=== PATIENT | female | born 1940 | race Caucasian/White ===

== ENCOUNTER 2017-04-13 06:15 | Observation (INO) | payer OTHER ==
[2017-04-13] VITALS (20 sets, daily range): BP systolic 116–166; BP diastolic 58–79; PULSE 56–68; RESP 16–20; Ht 162.6 cm; Wt 70.2 kg
[~2017-04-13] VITALS: Ht 162.6 cm; Wt 70.2 kg
[2017-04-13] MEDS ORDERED: THROMBIN 5000 UNIT VIAL ONE (06:53)
[2017-04-13] MEDS ORDERED: LIDOCAINE 2%/EPI (MDV) 20ML INJ ONE (06:53)
[2017-04-13] MEDS ORDERED: BENA10TA48 PO (07:13)
[2017-04-13] MEDS ORDERED: NAPR500T8 PO (07:13)
[2017-04-13] MEDS ORDERED: LORA5SOL74 PO (07:13)
[2017-04-13] MEDS ORDERED: ASPI81TA3 PO (07:13)
[2017-04-13] MEDS ORDERED: CITA10TA84 PO (07:14)
[2017-04-13] MEDS ORDERED: CALC-543 PO (07:15)
[2017-04-13] MEDS ORDERED: ROSU10TA PO (07:15)
[2017-04-13] MEDS ORDERED: LIDOCAINE 2% (SDV) 5 ML INJ ONE (07:20)
[2017-04-13] MEDS ORDERED: PROPOFOL 20 ML ONE (07:20)
[2017-04-13] MEDS ORDERED: ROCURONIUM 50 MG INJ ONE ×2 (07:20→08:51)
[2017-04-13] MEDS ORDERED: FENTAnyl 50 MCG/ML VIAL ONE (07:40)
[2017-04-13] MEDS ORDERED: CEFAZOLIN 1 GM INJ ONE (08:22)
[2017-04-13] MEDS ORDERED: DEXAMETHASONE 4 MG/ML 1 ML INJ ONE (08:23)
[2017-04-13] MEDS ORDERED: ONDANSETRON 4 MG INJ ONE (08:23)
[2017-04-13] MEDS ORDERED: POLYMYXIN/BACITRACIN 1L IRRIG IRR ONE (08:30)
[2017-04-13] MEDS ORDERED: MEPERIDINE 100 MG INJ ONE (08:32)
[2017-04-13] MEDS ORDERED: SUGAMMADEX SODIUM 200 MG/2 ML VIAL IV ONE (09:14)
--- NOTE | 2017-04-13 09:49 | OPR ---
Date/Time of Note Date/Time of Note DATE: 04/13/17 TIME: 09:47 Operative Report Procedure Date: Apr 13, 2017 Preoperative Diagnosis LARGE ENTEROCELE AND RECTOCELE Postoperative Diagnosis SAME Operation Performed ENTEROCELE AND RECTOCELE REPAIR Surgeon: MACY JOHN MD Anesthesia: general Anesthesiologist: GOPI HOBSON Estimated Blood Loss: 0 - 10 ml's Specimens VAGINAL MUCOSA Complications: None Pt Condition Post Procedure: stable Disposition: PACU MACY JOHN MD Apr 13, 2017 09:49
[2017-04-13] MEDS ORDERED: HYDROmorphONE 1 MG/ML SYG IV PRN (10:00)
[2017-04-13] MEDS ORDERED: ZOLPIDEM 5 MG TAB PO PRN (10:00)
[2017-04-13] MEDS ORDERED: HYDROCODONE/APAP (5/325) TAB PO PRN ×2 (10:00)
[2017-04-13] MEDS ORDERED: DIPHENHYDRAMINE 50 MG CAP PO PRN (10:00)
[2017-04-13] MEDS ORDERED: METOCLOPRAMIDE 10 MG TAB PO SCH (12:00)
[2017-04-13] MEDS: KETOROLAC 30 MG INJ IV SCH ×3 (12:18→21:02)
[2017-04-13] MEDS: LACTATED RINGER'S 1,000 ML IV SCH ×2 (12:18→17:27)
--- NOTE | 2017-04-13 13:55 | OPR ---
DATE OF OPERATION: 04/13/2017 PREOPERATIVE DIAGNOSIS: Large enterocele and rectocele. POSTOPERATIVE DIAGNOSIS: Large enterocele and rectocele. PROCEDURE: Enterocele and rectocele repair. SURGEON: Camila Dejesus MD ANESTHESIA: Dr. Pak with general. OPERATION PERFORMED: The patient was given general anesthesia, placed in the lithotomy position. The perineal vaginal area was prepped and draped and a large enterocele and rectocele was observed. A triangular incision was made at the perineum and the portion of the skin was removed. The vaginal area was cut in the midline all the way up to the cul-de-sac. Injection of xylocaine and epinephrine was done all the way up and separation of the rectocele was done and the enterocele was also pushed down. The and dissection was done of the rectocele and the enterocele sac was entered and trimmed and closed with interrupted sutures with 2-0 Vicryl. The rectocele was reduced with interrupted sutures with 0 Vicryl. The trimming of the vaginal mucosa was done and the whole vagina was closed with interrupted sutures with 0 Vicryl. At the perineal area the levator ani were tucked from one side to the other side with a number 0 Vicryl with lifting of the perineum. The perineum was closed with a 2-0 Vicryl as well. The Jordan catheter was placed in the bladder with clear urine, and there was no need for an anterior repair since the bladder appears to be normal, maybe grade 2 cystocele. Xeroform gauze was left in the vagina for pressure. The patient tolerated the procedure well and left the OR awake and stable. Sponge counts and instrument counts were correct. Intravenous antibiotics were given for prophylaxis. Blood loss was minimal. The urine was clear at the end of the procedure. Dictated By: Camila Dejesus MD /ignacio/basil /Document#: [id number]
[2017-04-13] MEDS ORDERED: CEFAZOLIN 1 GM/50 ML (PMX) 50 ML IVPB SCH (14:00)
[2017-04-13] MEDS ORDERED: CITALOPRAM 20 MG TAB PO SCH (21:00)
[2017-04-13] MEDS: CITALOPRAM 20 MG TAB PO SCH (21:02)
[2017-04-14 01:05] VITALS: BP 120/60; RESP 18
[2017-04-14] MEDS: LACTATED RINGER'S 1,000 ML IV SCH (02:14)
[2017-04-14] MEDS: KETOROLAC 30 MG INJ IV SCH ×2 (04:54→10:41)
[2017-04-14 05:40] LABS: HEMOGLOBIN 11.6 g/dl (12.0-16.0); LYMPHOCYTES # 1.7 10^3/ul (0.8-2.9); MEAN CORPUSCULAR HEMOGLOBIN 29.4 pg (29.0-33.0); MEAN CORPUSCULAR HGB CONC 34.1 g/dl (32.0-37.0); MEAN CORPUSCULAR VOLUME 86.3 fl (82.0-101.0); MEAN PLATELET VOLUME 11.1 fl (7.4-10.4); MONOCYTE # 0.9 10^3/ul (0.3-0.9); MONOCYTES % 7.5 % (0.0-11.0); NEUTROPHIL # 8.7 10^3/ul (1.6-7.5); NEUTROPHILS % 77.1 % (39.0-77.0); PLATELET COUNT 187 10^3/UL (140-415); RED BLOOD COUNT 3.94 10^6/ul (4.20-5.40); RED CELL DISTRIBUTION WIDTH 12.8 % (11.5-14.5); WHITE BLOOD COUNT 11.3 10^3/ul (4.8-10.8)
[2017-04-14 06:51] LABS: CREATININE 0.76 mg/dl (0.44-1.00); POTASSIUM 4.6 mmol/L (3.5-5.1)
[2017-04-14 07:00] VITALS: BP 139/73; RESP 20
[2017-04-14] MEDS: CITALOPRAM 20 MG TAB PO SCH (08:35)
[2017-04-14] MEDS ORDERED: ASPIRIN 81 MG TAB PO SCH (09:00)
[2017-04-14] MEDS ORDERED: BENAZEPRIL 10 MG TAB PO SCH ×2 (09:00)
--- NOTE | 2017-04-14 10:13 | PD.PPDC ---
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
--- NOTE | 2017-04-14 10:23 | DS ---
Date/Time of Note Date/Time of Note DATE: 04/14/17 TIME: 10:16 Discharge Summary Admission/Discharge Info Admit Date/Time Apr 13, 2017 at 06:15 Discharge Date/Time 04/14/17 Discharge Diagnosis Enterocele and rectocele repair Patient Condition: Good Procedures Enterocele and Rectocele repair Hx of Present Illness Long history of pelvic pain and pressure with severe constipation and a mass that comes out of vagina Enterocele and rectocele diagnosed Repair offered mild cystocele, asymptomatic no uterine prolapse Hospital Course uneventful recovery post surgery. packing left overnite to control hemostasis patient did very well, and was able to control pain with oral meds, eat and tolerate regular diet. ambulate and have a BM. laboratory testing near normal and afebrile. very happy to go home Home Meds Reported Medications Rosuvastatin Calcium (Rosuvastatin Calcium) 10 Mg Tablet, 10 MG PO DAILY, TAB 04/13/17 Calcium Carb & Cit-Vitamin D3 (Calcium + D3 ER) 1 Each Tablet.er, 1 TAB PO DAILY , TAB 04/13/17 Citalopram Hydrobromide* (Citalopram Hydrobromide*) 10 Mg Tablet, 10 MG PO BID, #30 TAB 04/13/17 Naproxen* (Naproxen EC*) 500 Mg Tablet.dr, 500 MG PO DAILY, TAB 04/13/17 Aspirin (Aspirin) 81 Mg Chew, 81 MG PO DAILY, TAB.CHEW 04/13/17 Benazepril Hcl* (Benazepril Hcl*) 10 Mg Tablet, 10 MG PO DAILY, #30 TAB 04/13/17 Loratadine (Loratadine) 5 Mg/5 Ml Solution, 10 MG PO DAILY, #300 ML 04/13/17 Primary Care Provider Not On Staff Doctor Pending Labs Laboratory Tests Test 04/14/17 04:35 White Blood Count 11.310^3/ul (4.8-10.8) Red Blood Count 3.9410^6/ul (4.20-5.40) Hemoglobin 11.6g/dl (12.0-16.0) Hematocrit 34.0% (37.0-47.0) Mean Corpuscular Volume 86.3fl (82.0-101.0) Mean Corpuscular Hemoglobin 29.4pg (29.0-33.0) Mean Corpuscular Hemoglobin Concent 34.1g/dl (32.0-37.0) Red Cell Distribution Width 12.8% (11.5-14.5) Platelet Count 92284^3/UL (140-415) Mean Platelet Volume 11.1fl (7.4-10.4) Neutrophils % 77.1% (39.0-77.0) Lymphocytes % 15.0% (15.0-51.0) Monocytes % 7.5% (0.0-11.0) Eosinophils % 0.0% (0.0-7.0) Basophils % 0.0% (0.0-2.0) Nucleated Red Blood Cells % 0.0/100WBC (0.0-0.0) Neutrophils # 8.710^3/ul (1.6-7.5) Lymphocytes # 1.710^3/ul (0.8-2.9) Monocytes # 0.910^3/ul (0.3-0.9) Eosinophils # 0.010^3/ul (0.0-0.5) Basophils # 0.010^3/ul (0.0-0.1) Nucleated Red Blood Cells # 0.010^3/ul (0.0-0.0) Sodium Level 140mmol/L (135-144) Potassium Level 4.6mmol/L (3.5-5.1) Chloride Level 104mmol/L (97-110) Carbon Dioxide Level 26mmol/L (21-31) Anion Gap 15 (8-16) Blood Urea Nitrogen 12mg/dl (7-20) Creatinine 0.76mg/dl (0.44-1.00) MACY JOHN MD Apr 14, 2017 10:23
[2017-04-14 14:00] VITALS: BP 106/54; RESP 18
== END 2017-04-14 15:15 | disposition home or self-care (01) ==
LOC: REC 06:15 → INTOOBSV 06:15 → EDSTATUS 07:30 → MS1 10:39
PROVIDERS: ADMIT Obstetrics & Gynecology; ATTEND Obstetrics & Gynecology
DX: N81.5 Vaginal enterocele (principal); N81.6 Rectocele; E78.5 Hyperlipidemia, unspecified; I10 Essential (primary) hypertension; Z86.73 Personal history of transient ischemic attack (TIA), and cerebral infarction without residual deficits; Z88.0 Allergy status to penicillin; Z91.041 Radiographic dye allergy status
CPT/HCPCS: 57250; 57268; 80051; 82565; 84520; 85025; 87086; 88305; J0690; J1100; J1885; J2175; J2405; J3010; J7120; Z7500; Z7512; Z7610; 99217; G0378

== ENCOUNTER 2017-07-04 06:18 | Day surgery (SDC) | payer OTHER ==
--- NOTE | 2017-07-02 16:26 | PREOPHP ---
DATE OF ADMISSION: 07/04/2017 HISTORY OF PRESENT ILLNESS: This is a 77-year-old 5, para 3, abortions 2. Patient with a h istory of constipation and with endometrial hyperplasia and lower abdominal pain with a painful blad nadine. This patient has been diagnosed with a large enterocele and rectocele that was fixed in 7. This patient had an ultrasound that revealed that she had endometrial hyperplasia for which a hy steroscopy D and C is offered at this time. This patient had a history of appendectomy, tonsillecto my, hypertension. ALLERGIES: 1. IODINE 2. PENICILLIN. PAST MEDICAL HISTORY: She has a history of mini stroke in 2012 and rosacea. MEDICATIONS: She is on: 1. Benazepril for hypertension. 2. Naproxen 3. Citalopram. 4. Aspirin. 5. Naproxen for pain. FAMILY HISTORY: Hypertension, heart attacks, diabetes and strokes. This patient was treated for enterocele repair with successful; now after an ultrasound that reveale d endometrial hyperplasia, we are doing a fractional D and C hysteroscopy to rule out endometrial ma lignancy. Past history is otherwise noncontributory. PHYSICAL EXAMINATION: GENERAL APPEARANCE: Good. VITAL SIGNS: Blood pressure 130/70, pulse is 80. She weighs 155, she is 5 feet 4 inches. HEAD AND NECK: Normal. BREASTS: Soft, nontender, no masses. CHEST: Clear. HEART: Normal sinus rhythm. BACK: Normal. ABDOMEN: Soft, nontender, no masses. GENITALIA: With normal external genitalia, no atrophy, absent uterus and no pain, no adnexal mass. Uterus is small and atrophic and nonprolapsed, and both adnexa are negative. DIAGNOSES: Endometrial hyperplasia, fibroid uterus, old fibroid uterus, vaginal atrophy, recent ent erocele and rectocele repair. PLAN: She is undergoing a fractional D and C hysteroscopy to rule out malignancy and to follow on h er care. The patient has been advised of the possible risks and possible complications of the proce dure with her alternatives and options. Written information was provided. She had no more question s and agreed to go ahead with the procedure with full understanding and no more questions. Dictated By: MACY WOODY/MAURILIO Conf#: [id number] [facility]#: [id number]
[~2017-07-04] VITALS: Ht 157.5 cm; Wt 71.6 kg
[2017-07-04] VITALS (12 sets, daily range): BP systolic 139–148; BP diastolic 51–73; PULSE 56–76; RESP 11–24; Ht 157.5 cm; Wt 71.6 kg
[~2017-07-04 06:18] MED LIST: ASPI81TA3 PO; BENA10TA48 PO; CALC-543 PO; CITA10TA84 PO; LORA5SOL74 PO; NAPR500T8 PO; ROSU10TA PO
[2017-07-04] MEDS ORDERED: PROPOFOL 20 ML ONE (07:28)
[2017-07-04] MEDS ORDERED: DEXAMETHASONE 4 MG/ML 1 ML INJ ONE (07:29)
[2017-07-04] MEDS ORDERED: ONDANSETRON 4 MG INJ ONE (07:29)
[2017-07-04] MEDS ORDERED: FENTAnyl 50 MCG/ML VIAL ONE (07:29)
[2017-07-04] MEDS ORDERED: CLINDAMYCIN 900 MG/D5W (PMX) 50 ML IVPB SCH (07:30)
[2017-07-04] MEDS ORDERED: ONDANSETRON 4 MG INJ IV PRN (08:00)
[2017-07-04] MEDS ORDERED: hydrALAzine 20 MG INJ IV PRN (08:00)
[2017-07-04] MEDS ORDERED: LABETALOL HCL 20MG INJ IV PRN (08:00)
[2017-07-04] MEDS ORDERED: FENTAnyl 50 MCG/ML VIAL IV PRN ×2 (08:00)
[2017-07-04] MEDS ORDERED: ACETAMINOPHEN 1000MG/100ML IV 100 ML ONE (08:19)
[2017-07-04] MEDS ORDERED: KETOROLAC 30 MG INJ ONE (08:25)
[2017-07-04] MEDS ORDERED: EPHEDrine SULFATE 50 MG/5 ML SYG ONE (08:26)
--- NOTE | 2017-07-04 08:36 | PD.PPDC ---
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
[2017-07-04] MEDS ORDERED: KETOROLAC 30 MG INJ IV STA (08:39)
--- NOTE | 2017-07-04 08:44 | SIPON ---
Date/Time of Note Date/Time of Note DATE: 07/04/17 TIME: 08:41 Operative Report Preoperative Diagnosis ENDOMETRIAL HYPERPLASIA OLD FIBROID UTERUS VAGINAL ATROPHY Postoperative Diagnosis SAME Operation/Procedure Performed FRACTIONAL; D&C HYSTEROSCOPY Surgeon see signature line assistant drafter NONE Anesthesia: general Estimated blood loss: minimal Transfusion Required none Specimen UTERINE CONTENTS Grafts/Implants none Complications none MACY JOHN MD Jul 04, 2017 08:44
--- NOTE | 2017-07-04 10:46 | OPR ---
DATE OF OPERATION: 07/04/2017 PROCEDURE: Fractional D and C, hysteroscopy. PREOPERATIVE DIAGNOSES: Endometrial hyperplasia, all fibroid uterus, vaginal atrophy. POSTOPERATIVE DIAGNOSES: Endometrial hyperplasia, all fibroid uterus, vaginal atrophy. SURGEON: Dr. Dejesus. ANESTHESIA: Nurse practitioner Lyubov HARVEY. COMPLICATIONS: None. DESCRIPTION OF PROCEDURE: The patient was given general anesthesia, placed in the lithotomy positio n. The perineal and vaginal area were prepped and draped. Complete examination under anesthe faisal revealed that the uterus was retroverted and small. Adnexa were nonpalpable. The vaginal specu lum was applied. The cervix was held. The endocervical curettage was done. The uterus was sounded to a depth of 3 inches and dilated with Hegar dilators. Hysteroscope was placed in and visualizati on of the cavity revealed that there was only free fluid in the cavity. There were no polyps or fib roids. Apparently the left tube ostium looked dilated and the right side was occluded. The procedu re was finished by removing the hysteroscope and scraping the cavity with sharp curet on the posteri or and anterior and fundus and lateral nguyen, very scanty tissue was obtained. The patient tolerate d the procedure well and left the OR awake and stable. Sponge counts and instrument counts were cor rect. Intravenous antibiotics were given for prophylaxis. Blood loss was minimal. Dictated By: MACY WOODY/MAURILIO Conf#: [id number] DID#: [id number]
== END 2017-07-04 10:15 | disposition home or self-care (01) ==
LOC: SDS 06:18
PROVIDERS: ATTEND Obstetrics & Gynecology
DX: N85.00 Endometrial hyperplasia, unspecified (principal); N95.2 Postmenopausal atrophic vaginitis; I10 Essential (primary) hypertension
CPT/HCPCS: 58558; 88305; J0131; J1100; J1885; J2405; J3010; Z7512; Z7610

== ENCOUNTER 2018-08-07 08:52 | Day surgery (SDC) | END 2018-08-07 13:08 | disposition home or self-care (01) ==

== ENCOUNTER 2018-10-02 21:01 | Emergency (ER) | payer OTHER ==
[~2018-10-02] VITALS: Ht 165.1 cm; Wt 72.0 kg
[~2018-10-02 21:01] MED LIST changes: +ACET325T45 PO; +ALPR0.5T6 PO; -ASPI81TA3 PO; +ASPI81TA52 PO; +BENA10TA4 PO; -BENA10TA48 PO; -CALC-543 PO; -CITA10TA84 PO; +CITA20TA11 PO; +DONE5TAB7 PO; +LORA-186 PO; -LORA5SOL74 PO; +MECL-77 PO; -NAPR500T8 PO; -ROSU10TA PO; +ROSU10TA55 PO
[2018-10-02 21:27] VITALS: Ht 165.1 cm; Wt 72.0 kg
[2018-10-02] MEDS ORDERED: SOD CHLORIDE 0.9% 500 ML IV STA (22:28)
[2018-10-02] MEDS ORDERED: NAPR-985 PO (22:56)
[2018-10-02] MEDS ORDERED: GLUC1CAP16 PO (23:02)
[2018-10-02] MEDS ORDERED: IOHEXOL 100 ML ONE (23:03)
[2018-10-02] MEDS ORDERED: SOD CHLORIDE 0.9% 100 ML ONE (23:03)
[2018-10-02] MEDS ORDERED: MAGN400T28 PO (23:03)
[2018-10-03] MEDS ORDERED: KETOROLAC 15 MG INJ IV STA (00:38)
[2018-10-03] MEDS ORDERED: LORAZEPAM 2 MG INJ IV ONE (01:00)
[2018-10-03] MEDS ORDERED: CYCL10TA7 PO (01:32)
[2018-10-03] MEDS ORDERED: TRAM50TA2 PO (01:32)
--- NOTE | 2018-10-03 01:45 | ERD ---
ER Documentation Chief Complaint Chief Complaint STEVENSON WITH BILAT NECK PAIN & HX OF CVA 2013, MILD "WOBBLINESS WHEN AMBULATING" HPI This is a very pleasant 78-year-old female comes with a headache that started with bilateral neck pain. She said it started with muscle stiffness yesterday and got progressively worse and then it progressed to the top of her head. It is reproducible to touch and worse when she moves her head left and right. Denies focal neurologic complaints. Denies visual acuity changes. Denies ataxia. Denies balance issues. Denies any other current complaints. Pain mild to moderate intensity with no exacerbating or alleviating factors. ROS All systems reviewed and are negative except as per history of present illness. Medications Home Meds Active Scripts Tramadol HCl (Tramadol HCl) 50 Mg Tablet, 25 MG PO Q4 PRN for PAIN, #20 TAB Prov:MODESTA SANDHU 10/03/18 Cyclobenzaprine Hcl* (Cyclobenzaprine Hcl*) 10 Mg Tablet, 10 MG PO TID, #15 TAB Prov:MODESTA SANDHU. 10/03/18 Reported Medications Magnesium Oxide* (Magnesium Oxide*) 400 Mg Tablet, 400 MG PO DAILY, TAB 10/02/18 Gluc HCl/Csa/Raymond Hy/Hyalur AC (Glucosamine Chondroitin Cap) 1 Each Capsule, 1 EACH PO DAILY, CAP 10/02/18 Naproxen* (Naprosyn*) 500 Mg Tablet, 500 MG PO BID, TAB 10/02/18 Donepezil* (Donepezil*) 5 Mg Tablet, 5 MG PO QHS, #30 TAB 08/07/18 Aspirin (Low Dose Aspirin) 81 Mg Tablet.dr, 81 MG PO DAILY, #30 TAB 08/07/18 Rosuvastatin Calcium* (Crestor*) 10 Mg Tablet, 10 MG PO QHS, #30 TAB 08/07/18 Benazepril Hcl* (Benazepril Hcl*) 10 Mg Tablet, 10 MG PO DAILY, #30 TAB 08/07/18 Loratadine* (Claritin*) 10 Mg Tablet, 10 MG PO DAILY, TAB 08/07/18 Citalopram Hydrobromide* (Celexa*) 20 Mg Tablet, 20 MG PO DAILY, #30 TAB 08/07/18 Discontinued Reported Medications Acetaminophen* (Acetaminophen*) 325 Mg Tablet, 325 MG PO Q4H PRN for PAIN AND OR ELEVATED TEMP, #30 TAB 08/07/18 Meclizine Hcl* (Meclizine Hcl*) 25 Mg Tablet, 25 MG PO Q8H PRN for DIZZINESS, TAB 08/07/18 Alprazolam* (Alprazolam*) 0.5 Mg Tablet, 0.5 MG PO ONCE A WEEK PRN for ANXIETY, TAB 08/07/18 Allergies Allergies: Coded Allergies: Penicillins (Unverified Allergy, Unknown, ITCHING, SWELLING, 10/02/18) iodine (Unverified Allergy, Unknown, ITCHING SWELLING, 10/02/18) PMhx/Soc History of Surgery: Yes (Appendectomy, tonsillectomy, cataract) Anesthesia Reaction: No Hx Neurological Disorder: Yes (Stroke 2013) Hx Respiratory Disorders: No Hx Cardiac Disorders: Yes (HTN) Hx Psychiatric Problems: Yes (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, Anxiety) Hx Miscellaneous Medical Probl: Yes (Basal cell carcinoma) Hx Alcohol Use: Yes (OCC) Hx Substance Use: No Hx Tobacco Use: No Smoking Status: Never smoker Physical Exam Vitals Vital Signs Date Temp Pulse Resp B/P (MAP) Pulse Ox O2 O2 Flow FiO2 Time Delivery Rate 10/03/18 71 19 153/72 95 Room Air 01:06 (99) 10/02/18 99.3 69 17 154/71 97 Room Air 23:37 (98) 10/02/18 73 15 159/72 95 Room Air 22:30 (101) 10/02/18 73 16 168/80 97 Room Air 21:44 (109) 10/02/18 99.5 77 16 187/88 96 21:27 (121) Physical Exam Const: No acute distress Head: Atraumatic Eyes: Normal Conjunctiva ENT: Normal External Ears, Nose and Mouth. Neck: Full range of motion. No meningismus. Resp: Clear to auscultation bilaterally Cardio: Regular rate and rhythm, no murmurs Abd: Soft, non tender, non distended. Normal bowel sounds Skin: No petechiae or rashes Back: No midline or flank tenderness Ext: No cyanosis, or edema Neur: Awake and alert Psych: Normal Mood and Affect Result Diagram: 10/02/18 2241 10/02/18 2241 Results 24 hrs Laboratory Tests Test 10/02/18 22:41 10/02/18 22:50 10/02/18 23:32 White Blood Count 11.8 10^3/ul Red Blood Count 4.06 10^6/ul Hemoglobin 12.0 g/dl Hematocrit 35.9 % Mean Corpuscular Volume 88.4 fl Mean Corpuscular Hemoglobin 29.6 pg Mean Corpuscular 33.4 g/dl Hemoglobin Concent Red Cell Distribution Width 12.5 % Platelet Count 158 10^3/UL Mean Platelet Volume 11.1 fl Immature Granulocytes % 0.300 % Neutrophils % 83.7 % Lymphocytes % 9.5 % Monocytes % 5.4 % Eosinophils % 0.5 % Basophils % 0.6 % Nucleated Red Blood Cells % 0.0 /100WBC Immature Granulocytes # 0.040 10^3/ul Neutrophils # 9.8 10^3/ul Lymphocytes # 1.1 10^3/ul Monocytes # 0.6 10^3/ul Eosinophils # 0.1 10^3/ul Basophils # 0.1 10^3/ul Nucleated Red Blood Cells # 0.0 10^3/ul Prothrombin Time 12.0 Sec Prothrombin Time Ratio 0.9 INR International 0.88 Normalized Ratio Activated Partial Thromboplast Pending Time Sodium Level 136 mmol/L Potassium Level 4.3 mmol/L Chloride Level 102 mmol/L Carbon Dioxide Level 25 mmol/L Anion Gap 9 Blood Urea Nitrogen 21 mg/dl Creatinine 0.69 mg/dl Est Glomerular Filtrat mL/min Rate mL/min Glucose Level 132 mg/dl Hemoglobin A1c 5.5 % Calcium Level 9.4 mg/dl Total Bilirubin 0.0 mg/dl Direct Bilirubin 0.00 mg/dl Indirect Bilirubin 0.0 mg/dl Aspartate Amino 26 IU/L Transf (AST/SGOT) Alanine 14 IU/L Aminotransferase (ALT/SGPT) Alkaline Phosphatase 109 IU/L Troponin I < 0.012 ng/ml Total Protein 7.6 g/dl Albumin 4.3 g/dl Globulin 3.30 g/dl Albumin/Globulin Ratio 1.30 Triglycerides Level 140 mg/dl Cholesterol Level 170 mg/dl LDL Cholesterol, Calculated 99 mg/dl HDL Cholesterol 43 mg/dl Cholesterol/HDL Ratio 3.9 RATIO Urine Color STRAW Urine Clarity CLEAR Urine pH 7.0 Urine Specific [place] 1.013 Urine Ketones NEGATIVE mg/dL Urine Nitrite NEGATIVE mg/dL Urine Bilirubin NEGATIVE mg/dL Urine Urobilinogen NEGATIVE mg/dL Urine Leukocyte Esterase NEGATIVE Pavan/ul Urine Microscopic RBC 11 /HPF Urine Microscopic WBC 1 /HPF Urine Squamous Epithelial Cells FEW /HPF Urine Bacteria FEW /HPF Urine Hemoglobin 1+ mg/dL Urine Glucose NEGATIVE mg/dL Urine Total Protein NEGATIVE mg/dl Urine Opiates Screen Negative Urine Barbiturates Negative Urine Amphetamines Screen Negative Urine Benzodiazepines Screen Negative Urine Cocaine Screen Negative Urine Cannabinoids Negative Bedside Glucose 132 mg/dL Current Medications Medications Dose Sig/Jayant Start Time Status Last (Trade) Ordered Route PRN Stop Time Admin Dose Reason Admin Sodium 500 ml @ Q1H STAT 10/02/18 DC 10/02/18 Chloride 500 mls/hr IV 22:28 23:25 10/02/18 23:27 IV Flush 10 ml STK-MED 10/02/18 DC 10/02/18 (NS 10 ml) ONCE .ROUTE 23:03 23:03 10/02/18 23:04 Sodium 100 ml @ ud STK-MED 10/02/18 DC 10/02/18 Chloride ONCE .ROUTE 23:03 23:03 10/02/18 23:04 Iohexol 100 ml @ ud STK-MED 10/02/18 DC 10/02/18 ONCE .ROUTE 23:03 23:03 10/02/18 23:04 Lorazepam 1 mg ONCE ONCE 10/03/18 DC 10/03/18 (Ativan) IV 01:00 01:02 10/03/18 01:01 Ketorolac 15 mg ONCE STAT 10/03/18 DC 10/03/18 Tromethamine IV 00:38 00:46 (Toradol) 10/03/18 00:39 Procedures/MDM EKG: Rate/Rhythm: [Normal Sinus Rhythm] QRS, ST, T-waves: [No changes consistent w/ acute ischemia] Impression: [No evidence of ischemia or arrhythmia] chest X-ray 1V Interpreted by me: Soft Tissue: No acute abnormalities Bones: No acute abnormalities Mediastinum/Cardiac Silhouette/Lungs: [No acute abnormalities] CT of the head and CT angios showed no acute pathology . Please see radiology dictation for report Medical decision making: Patient's neurologic symptoms have stabilized while they have been evaluated in the department and are appropriate for outpatient work up. No e/o meningitis, intracranial bleed, seizure, stroke. Departure Diagnosis: Primary Impression: Headache Headache type: unspecified Headache chronicity pattern: unspecified pattern Intractability: not intractable Qualified Codes: R51 - Headache Condition: Stable Patient Instructions: Radiculopathy, Cervical MODESTA SANDHU Oct 03, 2018 01:44
[2018-10-03 03:05] VITALS: BP 130/64; PULSE 74; RESP 19
== END 2018-10-03 03:05 | disposition home or self-care (01) ==
LOC: E/R 21:01
DX: R51 Headache (principal); R40.2252 Coma scale, best verbal response, oriented, at arrival to emergency department; R40.2362 Coma scale, best motor response, obeys commands, at arrival to emergency department; R40.2142 Coma scale, eyes open, spontaneous, at arrival to emergency department; I10 Essential (primary) hypertension; Z79.82 Long term (current) use of aspirin; Z86.73 Personal history of transient ischemic attack (TIA), and cerebral infarction without residual deficits
CPT/HCPCS: 36415; 70450; 70496; 70498; 71045; 80053; 80061; 80307; 81001; 82962; 83036; 84484; 85025; 85610; 85730; 93005; 96374; 96375; J1885; J2060; J7040; Q9967; Z7502; Z7610